=== PATIENT | male | born 1980 | race Caucasian/White ===

== ENCOUNTER 2016-07-08 13:21 | Emergency (ER) | payer BC, OTHER ==
[2016-07-08 15:57] LABS: Hematocrit 47 % (42-52); Hemoglobin 15.5 g/dl (14.0-18.0); Mean Corpuscular HGB Conc 33 g/dl (31-36); Mean Corpuscular Hemoglobin 29 pg (27-31); Mean Corpuscular Volume 88 fL (80-94); Mean Platelet Volume 9 um3 (7.4-10.4); Red Blood Count 5.35 10^6/ul (4.0-5.4); Red Cell Distribution Width 13 % (10.5-15); White Blood Count 6.8 10^3/ul (3.5-10.8)
[2016-07-08] MEDS ORDERED: Aspirin Low Dose CHEW TAB* 81 MG PO ONE (16:00)
[2016-07-08] MEDS ORDERED: Al Hydrox/Mg Hydrox/Simet LIQ* 30 ML UDC PO ONE (16:00)
[2016-07-08] MEDS ORDERED: Lidocaine 2% VISCOUS* 15 ML UDC PO ONE (16:00)
[2016-07-08] MEDS ORDERED: SCOP/HYOS/ATR/PB(NF) 10 ML UDC PO ONE (16:00)
[2016-07-08 16:13] LABS: Albumin 4.7 g/dL (3.2-5.2); BUN/Creatinine Ratio 18.2 (8-20); Calcium 9.9 mg/dL (8.6-10.3); EGFR African American 111.3 (>60); EGFR Non-African American 86.5 (>60); Globulin 2.8 g/dL (2-4); Potassium 3.8 mmol/L (3.5-5.0); Total Bilirubin 0.9 mg/dL (0.2-1.0); Total Protein 7.5 g/dL (6.4-8.9)
--- NOTE | 2016-07-08 16:26 | RAD ---
HISTORY: Chest pain COMPARISONS: None VIEWS:1: Single frontal portable view of the chest at 4:20 PM FINDINGS: LINES AND TUBES: None. CARDIOMEDIASTINAL SILHOUETTE: The cardiomediastinal silhouette is normal for portable technique. PLEURA: The costophrenic angles are sharp. No pleural abnormalities are noted. LUNG PARENCHYMA: The lungs are clear. ABDOMEN: The upper abdomen is clear. There is no subphrenic gas. BONES AND SOFT TISSUES: No bone or soft tissue abnormalities are noted. IMPRESSION: NO ACTIVE CARDIOPULMONARY DISEASE.
[2016-07-08 20:33] VITALS: BP 146/67
--- NOTE | 2016-07-11 07:54 | ED ---
Giuseppe Cuellar Rebecca, scribed for Oh Gonzalez MD on 07/08/16 at 1541 . HPI Chest Pain - HPI Summary HPI Summary: Pt is a 36 y/o M who presents to ED c/o CP. Pain began suddenly at 1300 while walking and lasted 1 hour. Pain was characterized as dull/tight and located in the left anterior chest without radiation. Pain has now resolved. Sx alleviated by deep breaths, aggravated by nothing. Denies cough, fever, SOB, nausea and edema. Similar episode a few weeks ago which he did not have evaluated. Recent flight to [place]. IF THERE IS ONE, PLEASE SEE DICTATION BY DR. GONZALEZ FOR FURTHER INFORMATION. - History of Current Complaint Chief Complaint: EDChestPainROMI Hx Obtained From: Patient Onset/Duration: Started Hours Ago, Resolved Time of Onset: 13:30 Timing: Intermittent, Lasting Hours - 1 hour Initial Severity: Mild Current Severity: None Pain Intensity: 0 Pain Scale Used: 0-10 Numeric Chest Pain Location: Left Anterior Chest Pain Radiates: No Character: Dull/Aching, Tightness Aggravating Factor(s): Nothing Alleviating Factor(s): Other: - Deep breaths Associated Signs and Symptoms: Negative: Shortness of Breath, Fever, Nausea, Cough, Edema Related History: Similar Episode/Dx as: - a few weeks ago, was not evaluated - Allergy/Home Medications Allergies/Adverse Reactions: Allergies Allergy/AdvReac Type Severity Reaction Status Date / Time No Known Allergies Allergy Verified 05/27/14 21:42 PMH/Surg Hx/FS Hx/Imm Hx Previously Healthy: Yes Endocrine/Hematology History: Denies: Hx Diabetes Cardiovascular History: Denies: Hx Hypercholesterolemia, Hx Hypertension Infectious Disease History: No Infectious Disease History: Reports: Traveled Outside the [place] in Last 30 Days - [place] - Family History Known Family History: Positive: Cardiac Disease - grandfather , Hypertension - mother Negative: Diabetes - Social History Lives: With Family Alcohol Use: Occasionally Substance Use Type: Reports: None Smoking Status (MU): Never Smoked Tobacco Review of Systems - ROS Summary Review of Systems Summary: IF THERE IS ONE, PLEASE SEE DICTATION BY DR. GONZALEZ FOR FURTHER INFORMATION. Negative: Fever Positive: Chest Pain - resolved Negative: Shortness Of Breath, Cough Negative: Nausea Negative: Edema All Other Systems Reviewed And Are Negative: Yes Physical Exam - Summary Physical Exam Summary: GENERAL: Awake, alert, oriented, no acute distress, very pleasant HEAD/FACE: Head is normocephalic, atraumatic EYES: Anicteric sclera, clear conjunctiva ENT: Mucous membranes moist, no erythema, no discharge, no lesions, neck is supple, trachea is midline, no JVD CARDIAC: Regular rate and rhythm, S1, S2, no rub, no murmur, no gallop, 2+ radial and pedal pulses bilaterally RESPIRATORY: Clear to auscultation bilaterally with no rales, rhonchi, or wheezes, non-tender ABDOMEN: Bowel sounds positive, no bruit, soft, non-tender, no CVA tenderness EXTREMITIES: No edema, warm, dry, moving all extremities in a grossly normal manner NEUROLOGICAL: Mood is appropriate, moving all extremities in a grossly normal manner IF THERE IS ONE, PLEASE SEE DICTATION BY DR. GONZALEZ FOR FURTHER INFORMATION. Triage Information Reviewed: Yes Vital Signs On Initial Exam: Initial Vitals Temp Pulse Resp BP Pulse Ox 97.5 F 80 16 170/88 100 07/08/16 13:24 07/08/16 13:24 07/08/16 13:24 07/08/16 13:24 07/08/16 13:24 Vital Signs Reviewed: Yes Diagnostics - Vital Signs Vital Signs Temp Pulse Resp BP Pulse Ox 07/08/16 13:24 97.5 F 80 16 170/88 100 - Laboratory Result Diagrams: 07/08/16 15:48 07/08/16 15:48 Lab Statement: Any lab studies that have been ordered have been reviewed, and results considered in the medical decision making process. - Radiology CXR Xray Interpretation: No Acute Changes Radiology Interpretation Completed By: Radiologist - EKG 1329 Cardiac Rate: NL - 65 bpm EKG Interpretation: no acute ischemia Re-Evaluation - Re-Evaluation First Eval Re-Evaluation Time: 18:54 Change: Improved Comment: Pt is feeling significantly better. Explained that if the second troponin is negative he will be d/c to home with a follow up from his primary care physician. Chest Pain Course/Dx - Diagnoses Provider Diagnoses: Chest pain of unknown etiology Discharge - Discharge Plan Condition: Stable Disposition: HOME Patient Education Materials: Chest Pain (ED) Referrals: No Primary Care Phys,NOPCP [Primary Care Provider] - 3 Days Additional Instructions: Follow up with your primary care physician within the next 3 days. PLEASE RETURN TO THE EMERGENCY DEPARTMENT FOR NAUSEA, VOMITING, FEVER, PHOTOPHOBIA, CHEST PAIN, OR IF SYMPTOMS WORSEN. The documentation as recorded by the Giuseppe salazar Rebecca accurately reflects the service I personally performed and the decisions made by , Oh Gonzalez MD.
== END 2016-07-08 20:28 | disposition home or self-care (01) ==
LOC: ED 13:21
DX: R07.9 Chest pain, unspecified (principal)
CPT/HCPCS: 36415; 71010; 80053; 82550; 82553; 83605; 83874; 83880; 84484; 85025; 85379; 85610; 85730; 93005; 99283; A9270-GY